=== PATIENT | female | born 1970 | race Caucasian/White ===

== ENCOUNTER 2017-12-24 09:53 | Inpatient (IN) ==
[2017-12-24] MEDS ORDERED: *HR* Midazolam HCl 2 MG/2 ML VIAL ONE (10:20)
[2017-12-24] MEDS ORDERED: *HR* FentaNYL (PF) 100 MCG/2 ML VIAL ONE ×2 (10:20→14:55)
[2017-12-24] MEDS ORDERED: Ondansetron 4 MG/2 ML VIAL ONE (10:20)
[2017-12-24] MEDS ORDERED: *HR* Propofol 200 MG/20 ML VIAL IVP ONE ×2 (10:20→15:11)
[2017-12-24] MEDS ORDERED: Lidocaine -MPF 2% 2 ML VIAL ONE ×2 (10:20→16:01)
[2017-12-24] MEDS ORDERED: Dexamethasone 4 MG/ML VIAL ONE ×2 (10:43→13:24)
--- NOTE | 2017-12-24 10:58 | History & Physical Report ---
Date of Encounter: 12/24/17 Time of Encounter: 10:30 24 Hour HP Update - Instructions Instructions: If the History and Physical is less than 30 days old and was completed prior to A.M. admission and or procedure and has NOT been updated on calendar day of procedure please complete this update prior to performing procedure. - Update Patient reports changes in Medical Condition: No Changes in examination, assessment, or condition: No Changes in Medication: No Preop tests/diagnostics Reviewed: Yes Surgery Remains Indicated: Yes Consent for Planned Operative Procedure(s) Verified: Yes - Attending Attestation proceed
--- NOTE | 2017-12-24 10:59 | Anesthesia Evaluation PreOp ---
Date of Encounter: 12/24/17 Time of Encounter: 10:56 - Past History Planned Operation: RIGHT ANKLE FUSION Cardiac History: HTN, Hyperlipidemia, Cardiac Surgery (? 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 3, RIGHT SIDE HEMIPARESIS), Other (DEPRESSION,) Other Medical History: GERD, Other (MORBID OBESITY, BMI 49) Anesthesia History: No Prior Anesthetic Complications, Past Anesthesia Alcohol Use: none Drug use: none Medications and Allergies Aclidinium [place] [Tudorza Pressair] 400 mcg PO BID 12/24/17 [History] Aspirin Enteric Coated [Aspirin EC] 81 mg PO DAILY 12/24/17 [History] Budesonide/Formoterol 80/4.5 [Symbicort 80/4.5] 2 puff IH BID 12/24/17 [History ] Chlorthalidone 25 mg PO DAILY 12/24/17 [History] Cyclobenzaprine HCl 10 mg PO TID PRN 12/24/17 [History] Ergocalciferol (VITAMIN D2) [Vitamin D2] 50,000 unit PO DAVIDSON 12/24/17 [History] Fenofibrate [Fenofibrate] 50 mg PO BID 12/24/17 [History] Gabapentin [Neurontin] 300 mg PO BID 12/24/17 [History] Lisinopril [Zestril] 40 mg PO DAILY 12/24/17 [History] Loratadine [Claritin] 10 mg PO DAILY 12/24/17 [History] Metoclopramide [Reglan] 10 mg PO BID PRN 12/24/17 [History] Metoprolol Succinate [Metoprolol Succinate] 50 mg PO DAILY 12/24/17 [History] Oxybutynin Chloride [Ditropan Xl] 15 mg PO DAILY 12/24/17 [History] Pantoprazole Sodium [Protonix] 40 mg PO QAM 12/24/17 [History] Pravastatin Sodium [Pravachol] 20 mg PO QAM 12/24/17 [History] Ranitidine HCl [Zantac] 300 mg PO HS 12/24/17 [History] 3 Allergy/AdvReac Type Severity Reaction Status Date / Time aspirin AdvReac Hives Verified 12/24/17 10:42 atorvastatin [From Lipitor] AdvReac Muscle Pain Verified 12/24/17 10:42 ibuprofen [From Motrin] AdvReac Itching Verified 12/24/17 10:42 - Meds/Allergy Pre-op Review Medications Reviewed: Yes Allergies Reviewed: Yes Beta Blockers on Current Med List: Yes Anesthesia Exam Vital Signs Temp Pulse Resp BP Pulse Ox 97.6 F 95 18 138/80 97 12/24/17 10:42 12/24/17 10:42 12/24/17 10:42 12/24/17 10:42 12/24/17 10:42 Height 1.63 m Weight 130.635 kg BMI 49 - HEENT Pupil (Motor): Pupils equal Mallampati: II Teeth: Missing, Edentulous Oral Opening: Greater than 3 - AIRSET MOLDER AIRSET MOLDER Motor: Deficit RUE, Deficit RLE - Cardiac Rhythm: Regular - Pulmonary Breath Sounds: bilateral Clear Respiratory Effort: Symmetrical Anesthesia Assess/Plan ASA Score: 4 Modified Siddhartha Scale for Level of Consciousness: Cooperative, oriented, and tranquil Anesthetic Plan: General, Regional (FOR POSTOPERATIVE PAIN) Monitoring Plan: Standard Monitors Recovery Plan: PACU Anes Supervising Prov Stmt: PATIENT'S CHART REVIEWED, INCLUDING RECORDS AND LAB WORK FROM [facility] REQUESTED CARDIOLOGY OFFICE NOTE ([facility]), NOT RECEIVED YET
[2017-12-24] MEDS ORDERED: Ondansetron 4 MG/2 ML VIAL IVP PRN (11:02)
[2017-12-24] MEDS ORDERED: *HR* OxyCODONE Immed Rel 5 MG TABLET PO PRN ×3 (11:12→17:16)
[2017-12-24] MEDS ORDERED: *HR* HYDROcodone/Acet 5/325 mg TABLET PO PRN (11:14)
[2017-12-24] MEDS ORDERED: Bupivacaine/EPI 1:200k 0.25%PF 30 ML VIAL ONE (11:16)
[2017-12-24] MEDS: Ringers Solution, Lactated 1,000 ML IVC SCH ×2 (11:30→12:56)
[2017-12-24] MEDS ORDERED: Lidocaine -MPF 4% 5 ML AMPUL ONE (11:38)
[2017-12-24] MEDS ORDERED: *HR* Succinylcholine 200 MG/10 ML VIAL IVP ONE (11:38)
[2017-12-24] MEDS ORDERED: ROPIVACAINE HCL/PF 0.5% 30 ML VIAL ONE ×2 (11:41→12:11)
[2017-12-24] MEDS ORDERED: EPHEDrine 50 MG/ML VIAL ONE (12:42)
[2017-12-24] MEDS ORDERED: *HR* Labetalol 20 MG/4 ML SYRINGE IVP PRN ×2 (13:01→17:16)
[2017-12-24] MEDS ORDERED: *HR* Morphine 2 MG/ML SYRINGE IVP PRN ×2 (13:01→17:16)
[2017-12-24] MEDS ORDERED: *HR* Promethazine 25 MG/ML VIAL IVP PRN ×2 (13:01→17:16)
--- NOTE | 2017-12-24 13:01 | Anesthesia Procedures ---
Date of Encounter: 12/24/17 Time of Encounter: 12:15 Procedures: Anesthesia - Nerve Block Procedure Date: 12/24/17 Time: 12:15 Surgical Procedure: right ankle fusion Checklist: Correct Patient Identifier, Correct procedure, History checked Correct side: Right Blood Thinner: No Monitor Applied: EKG, BP, Pulse Oximetry Supplemental Oxygen via Nasal Cannula (L/min): 2 Sedation: Versed (mg): 2 Sedation: Fentanyl (mcg): 100 Indication: Post Op Analgesia Block Type: Popliteal, Other (adductor canal) Catheter placed: No Sterile Technique: Yes Ultrasound used: Yes Anatomy identified: Yes Visual spread of Local: Yes Neuro Stimulation: Yes Nerve Stimulator Range: 0.2 - 0.4 mA Blood on Needle Aspiration: No Smooth Injection of Local: Yes Pain with Injection of Local: No Prep: Chlorhexadine Needle: 21 x 100 mm Stimuplex (x2) Local: Ropivacaine (0.5 % with 8mg of decadron) Volume (cc): 60 total 0.5% ropi. Number of Attempts: 1 Complications: None/effective block Vitals: Vital Signs/O2 Sat, Most Current Temp Pulse Resp BP Pulse Ox 97.6 F 95 18 138/80 97 12/24/17 10:42 12/24/17 10:42 12/24/17 10:42 12/24/17 10:42 12/24/17 10:42
[2017-12-24] MEDS ORDERED: Acetaminophen IV 1,000 MG/100 ML INFUS..BTL ONE (13:45)
[2017-12-24] MEDS ORDERED: Neostigmine Methylsulfate 3 MG/3 ML SYRINGE ONE (13:52)
--- NOTE | 2017-12-24 16:28 | Operative Note ---
Date of procedure: 12/24/17 Pre-op diagnosis: Right drop foot, acquired deformity right foot Post-op diagnosis: same Procedure: Right ankle Arthrodesis Subtalar joint Arthrodesis Implants: Biomet Grottoes intramedullary nail 10mm Complications: none Anesthesia: GETA Local Anesthetics: 0.25% Sensorcaine HCL with Epinephrine 1:200,000 SubQ (cc) Surgeon: Bartolo Brown Was there an seismic survey assistant present: No Estimated blood loss (cc): 250 Specimen: none Condition: stable Disposition: PACU Procedure in Detail: Indications: 47 year old female right drop foot and pain which failed conservative treatment in a brace as she had persistent difficulty walking and pain. Patient had already had a posterior tibial tendon transfer. Patients drop foot limited ambulation. Preoperatively nature of the above procedure ankle and subtalar joint arthrodesis were discussed at length pre-operatively. Risks versus benefits potential complications and consequences of surgery including but not limited to infection bleeding swelling numbness tingling nerve damage loss of functionality lack of procedure to produce desired outcome stiffness blood clot heart attack kidney damage liver damage persistent ongoing pain. Recurrence of deformity or drop foot development of new deformity delayed or nonunion of bone wound healing problems in ability to later have an ankle replacement, need for hardware removal need for further surgery, etc. no guarantees made as to the outcome of any procedure. All of her questions were answered and informed consent was signed. Patient was given a popliteal block by anesthesia and preoperative. Following induction of general anesthesia, the right lower extremity was scrubbed prepped and draped in the usual sterile fashion. A thigh tourniquet was applied but not inflated during the entire procedure. Right ankle arthrodesis and subtalar joint arthrodesis. Attention was directed to the lateral aspect of the patient's right ankle are #15 blade was used to make an incision over the fibula and the skin incision was deepened down to the level of the fibula bone. A sagittal saw was utilized to resect the distal 5 cm of the fibula. With the fibula removed, soft tissue was freed from the lateral and anterior aspect of the tibia and talus exposing the ankle joint. The anterior lip of the tibia was resected using the ronjeur. The incision on the lateral aspect of the ankle was lengthened to #15 blade exposing the subtalar joint. The subtalar joint ligaments were released and access was gained the subtalar joint. Next, using a combination of the curettes, osteotomes , flexible chisel and rotary bur as well as ronjeur the cartilage was removed from the tibiotalar and subtalar joint surfaces until there was bleeding subchondral bone and normal sterile saline was used to flush the joint surfaces and surgical site. A drill bit was used to fenestrate the joint surfaces. With the joint surfaces adequately prepped, the talus was medialized and both the tibiotalar joint and subtalar joint were held in a neutral position and temporarily pinned. Next using standard technique a Biomet Grottoes intramedullary nail 10 mm x 180 mm was utilized across the tibiotalar and subtalar joints for arthrodesis. External and internal compression was utilized. Excellent compression and apposition was noted on C-arm as well as clinically across the fusion zones. The tourniquet was not inflated and adequate hemostasis was present at the time of closure. Traversing veins and bleeders were cauterized using the bovie and vicryl ties during the procedure. Adequate hemostasis was felt to be present and the deep and subcutaneous tissues were closed with 2-0 Vicryl and skin reapproximated using a combination of melanie and 2-0 Nylon. Postoperative bandaging included Xeroform, 4 x 4 gauze Kerlix and the patient was placed in an adequately padded posterior splint. Patient tolerated the anesthesia and the procedure well and was escorted the recovery room with vital signs stable and vascular status intact to the right foot noted by instant capillary refill time to all digits of the right foot. Patient was admitted to the floor for monitoring tonight and will be discharged tomorrow.
--- NOTE | 2017-12-24 16:44 | Discharge Summary ---
Outpatient Proc Discharge Plan - Plan Additional Instructions: Remain non-weight bearing to the right lower extremity using assistive devices.. Ice and elevation. We have posterior splint and bandage clean dry and intact. Do not remove. Do not get wet. Resume home medications. New prescriptions discussed with you and given for oxycodone for pain, Zofran for nausea and Xarelto for blood clot prevention. incentive spirometry 10x/hour while awake. Follow up in 1 week.. Prescriptions: Miscellaneous Medical Supply [Attachment Set] 1 each MC DAILY 9999 Days #1 miscell Ondansetron ODT [Zofran ODT] 4 mg SL Q8HR PRN #15 tab.rapdis PRN Reason: Nausea Oxycodone HCl 5 mg PO Q4H PRN 6 Days #36 tablet PRN Reason: Pain Rivaroxaban [Xarelto] 10 mg PO DAILY #20 tablet Home Medications: Aclidinium [place] [Tudorza Pressair] 400 mcg PO BID 12/24/17 [History] Aspirin Enteric Coated [Aspirin EC] 81 mg PO DAILY 12/24/17 [History] Budesonide/Formoterol 80/4.5 [Symbicort 80/4.5] 2 puff IH BID 12/24/17 [History ] Chlorthalidone 25 mg PO DAILY 12/24/17 [History] Cyclobenzaprine HCl 10 mg PO TID PRN 12/24/17 [History] Ergocalciferol (VITAMIN D2) [Vitamin D2] 50,000 unit PO DAVIDSON 12/24/17 [History] Fenofibrate [Fenofibrate] 50 mg PO BID 12/24/17 [History] Gabapentin [Neurontin] 300 mg PO BID 12/24/17 [History] Lisinopril [Zestril] 40 mg PO DAILY 12/24/17 [History] Loratadine [Claritin] 10 mg PO DAILY 12/24/17 [History] Metoclopramide [Reglan] 10 mg PO BID PRN 12/24/17 [History] Metoprolol Succinate [Metoprolol Succinate] 50 mg PO DAILY 12/24/17 [History] Miscellaneous Medical Supply [Attachment Set] 1 each MC DAILY 9999 Days #1 miscell 12/24/17 [Rx] Ondansetron ODT [Zofran ODT] 4 mg SL Q8HR PRN #15 tab.rapdis 12/24/17 [Rx] Oxybutynin Chloride [Ditropan Xl] 15 mg PO DAILY 12/24/17 [History] Oxycodone HCl 5 mg PO Q4H PRN 6 Days #36 tablet 12/24/17 [Rx] Pantoprazole Sodium [Protonix] 40 mg PO QAM 12/24/17 [History] Pravastatin Sodium [Pravachol] 20 mg PO QAM 12/24/17 [History] Ranitidine HCl [Zantac] 300 mg PO HS 12/24/17 [History] Rivaroxaban [Xarelto] 10 mg PO DAILY #20 tablet 12/24/17 [Rx]
--- NOTE | 2017-12-24 17:02 | Anesthesia Evaluation Post Op ---
Date of Encounter: 12/24/17 Time of Encounter: 16:53 - Discharge PostOp Status: Transfer Patient to floor (Patient's vital signs have been reviewed. Patient is stable postoperatively and has adequately recovered from anesthesia. Patient is determined to have stable airway patency and respiratory function including respiratory rate and oxygen saturation. Patient has a stable heart rate, blood pressure and adequate hydration. Patients mental status is acceptable. Patients temperature is appropriate. Pain and nausea are adequately controlled.)
[2017-12-24] MEDS ORDERED: Ringers Solution, Lactated 1,000 ML IVC SCH (17:16)
[2017-12-24] MEDS: *HR* OxyCODONE Immed Rel 5 MG TABLET PO PRN (19:17)
[2017-12-24] MEDS: Budesonide/Formoterol 80/4.5 MDI IH SCH (20:26)
[2017-12-24] MEDS ORDERED: Gabapentin 300 MG CAPSULE PO SCH (21:00)
[2017-12-24] MEDS ORDERED: Famotidine 20 MG TABLET PO SCH (21:00)
[2017-12-24] MEDS ORDERED: Budesonide/Formoterol 80/4.5 MDI IH SCH (22:00)
[2017-12-24] MEDS: Gabapentin 300 MG CAPSULE PO SCH (22:59)
[2017-12-24] MEDS: *HR* HYDROcodone/Acet 5/325 mg TABLET PO PRN (22:59)
[2017-12-24] MEDS: Famotidine 20 MG TABLET PO SCH (23:00)
[2017-12-25] MEDS: *HR* OxyCODONE Immed Rel 5 MG TABLET PO PRN ×4 (03:16→20:31)
[2017-12-25] MEDS: Ondansetron 4 MG/2 ML VIAL IVP PRN ×2 (03:23→14:23)
[2017-12-25] MEDS: Budesonide/Formoterol 80/4.5 MDI IH SCH ×2 (07:48→20:21)
--- NOTE | 2017-12-25 07:48 | Podiatry Progress Note ---
Date of Encounter: 12/25/17 Time of Encounter: 07:15 Subjective Interval history: s/p tibiotalocalcaneal arthrodesis right LE. has voided. pain controlled. resting in bed. some nausea overnight CFT < 3 sec x 5 digits right foot. right foot warm to touch. bandage clean, dry and intact. no strikethrough. can flex and extend digits of the right foot. s/p tibiotalocalcaneal arthrodesis right LE-doing well discussed surgical procedure and course of recovery remain non-wb to the right LE using assistive devices physical therapy Rx in chart for xarelto, oxycodone, wheelchair, zofran social problems specialist to eval to set up home health, [facility] home PT for assistance in gait training/non-wb patient stable for discharge f/u in 1 week in office Objective - Vital Signs Vital Signs: Vital Signs Temp Pulse Resp BP Pulse Ox 12/25/17 07:20 98.2 F 89 16 107/62 96 12/25/17 04:08 97.9 F 88 16 107/69 95 12/24/17 23:55 97.9 F 103 18 129/58 96 12/24/17 20:26 16 97 12/24/17 20:20 98.2 F 80 16 118/72 96 12/24/17 19:19 97.2 F L 97 97 132/72 95 12/24/17 18:20 97.4 F L 92 14 118/73 96 12/24/17 17:49 97.7 F 88 14 110/64 94 12/24/17 17:19 97.9 F 87 14 105/69 94 12/24/17 17:04 88 18 124/76 93 12/24/17 16:54 90 18 128/70 94 12/24/17 16:44 91 18 120/90 93 12/24/17 16:34 98.4 F 88 16 124/64 97 12/24/17 10:42 97.6 F 95 18 138/80 97 12/24/17 10:24 97.6 F 95 18 138/80 97 Intake and Output 12/24/17 12/24/17 12/25/17 15:59 23:59 07:59 Intake Total 1000 / 1000 100 / 100 Output Total 250 / 250 1000 / 1000 Balance 1000 / 1000 -150 / -150 -1000 / -1000 Intake: IV Fluids 1000 / 1000 100 / 100 Lactated Ringers 1,000 ML @ 25 1000 / 1000 mls/hr IVC .Q24H OCTAVIO Rx#: [id number] Ancef 2,000 MG In 0.9 % Sodium 100 / 100 Chloride 100 ML @ 200 mls/hr IVPB Q8H OCTAVIO Rx#:[id number] Output: Urine 1000 / 1000 Estimated Blood Loss 250 / 250 Other: # Voids 1 1 Weight 130.635 kg - VTE Documentation of Mechanical Device: Venous foot pump, device Consult Discharge Plan - Plan Additional Instructions: Remain non-weight bearing to the right lower extremity using assistive devices.. Ice and elevation. We have posterior splint and bandage clean dry and intact. Do not remove. Do not get wet. Resume home medications. New prescriptions discussed with you and given for oxycodone for pain, Zofran for nausea and Xarelto for blood clot prevention. incentive spirometry 10x/hour while awake. Follow up in 1 week.. Referrals: Kobe Santos MD [Family Provider] - Johnnie Hassan [Primary Care Provider] - Prescriptions: Miscellaneous Medical Supply [Attachment Set] 1 each MC DAILY 9999 Days #1 miscell Ondansetron ODT [Zofran ODT] 4 mg SL Q8HR PRN #15 tab.rapdis PRN Reason: Nausea Oxycodone HCl 5 mg PO Q4H PRN 6 Days #36 tablet PRN Reason: Pain Rivaroxaban [Xarelto] 10 mg PO DAILY #20 tablet
--- NOTE | 2017-12-25 07:52 | Physician Discharge Referral ---
Home Health/Hosp Referral Info Transfer to: Home Health Attending Provider: Bartolo Brown - Diagnosis (1) Right foot drop Priority: Primary (s/p surgery) Status: Acute - Respiratory Orders Smoking Cessation: Smoking cessation has been advised. For more information, call the [place] Tobacco Quit Line at 5-347-WLOF-NOW. - Dressing/Wound Care Site: leave bandage clean, dry and intact. Do not remove. Do not get wet. - Diet/Nutrition Diet/Nutrition Orders: Cardiac - Activity Activity: List: non-weight bearing right lower extremity using walker or other assistive device - Services Needed Following services are medically necessary services: Home Health Aide, Physical Therapy Home Care Orders: physical therapy for gait training for non-weight bearing and safely navigating home no physical therapy on foot or ankle home health aide to assist in ADLs - Transfer Medications Prescriptions: Miscellaneous Medical Supply [Attachment Set] 1 each MC DAILY 9999 Days #1 miscell Ondansetron ODT [Zofran ODT] 4 mg SL Q8HR PRN #15 tab.rapdis PRN Reason: Nausea Oxycodone HCl 5 mg PO Q4H PRN 6 Days #36 tablet PRN Reason: Pain Rivaroxaban [Xarelto] 10 mg PO DAILY #20 tablet Home Medications: Aclidinium [place] [Tudorza Pressair] 400 mcg PO BID 12/24/17 [History] Aspirin Enteric Coated [Aspirin EC] 81 mg PO DAILY 12/24/17 [History] Budesonide/Formoterol 80/4.5 [Symbicort 80/4.5] 2 puff IH BID 12/24/17 [History ] Chlorthalidone 25 mg PO DAILY 12/24/17 [History] Cyclobenzaprine HCl 10 mg PO TID PRN 12/24/17 [History] Ergocalciferol (VITAMIN D2) [Vitamin D2] 50,000 unit PO DAVIDSON 12/24/17 [History] Fenofibrate [Fenofibrate] 50 mg PO BID 12/24/17 [History] Gabapentin [Neurontin] 300 mg PO BID 12/24/17 [History] Lisinopril [Zestril] 40 mg PO DAILY 12/24/17 [History] Loratadine [Claritin] 10 mg PO DAILY 12/24/17 [History] Metoclopramide [Reglan] 10 mg PO BID PRN 12/24/17 [History] Metoprolol Succinate [Metoprolol Succinate] 50 mg PO DAILY 12/24/17 [History] Miscellaneous Medical Supply [Attachment Set] 1 each MC DAILY 9999 Days #1 miscell 12/24/17 [Rx] Ondansetron ODT [Zofran ODT] 4 mg SL Q8HR PRN #15 tab.rapdis 12/24/17 [Rx] Oxybutynin Chloride [Ditropan Xl] 15 mg PO DAILY 12/24/17 [History] Oxycodone HCl 5 mg PO Q4H PRN 6 Days #36 tablet 12/24/17 [Rx] Pantoprazole Sodium [Protonix] 40 mg PO QAM 12/24/17 [History] Pravastatin Sodium [Pravachol] 20 mg PO QAM 12/24/17 [History] Ranitidine HCl [Zantac] 300 mg PO HS 12/24/17 [History] Rivaroxaban [Xarelto] 10 mg PO DAILY #20 tablet 12/24/17 [Rx] Allergies/Adverse Reactions: 3 Allergy/AdvReac Type Severity Reaction Status Date / Time aspirin AdvReac Hives Verified 12/24/17 10:42 atorvastatin [From Lipitor] AdvReac Muscle Pain Verified 12/24/17 10:42 ibuprofen [From Motrin] AdvReac Itching Verified 12/24/17 10:42 Certification: Further, I certify that my clinical findings support that this patient is homebound (i.e. absences from home require considerable and taxing effort and are for medical reasons or [employer]isc[employer] services or infrequently or short duration when for other reasons) because: Homebound Reason: Post-surgery restriction and or conditions limit ability to leave home, Leaving home requires considerable and taxing effort due to condition (s/p surgery non-weight bearing right ower extremity) Attestation: My signature below is to certify that this patient is under my care and that I, or nurse practitioner, or a physician's nursing assistants teacher working with me, has a face-to -face encounter with this patient.
[2017-12-25] MEDS: Loratadine 10 MG TABLET PO SCH (08:36)
[2017-12-25] MEDS: Cholecalciferol (D-3) 1,000 UNIT TABLET PO SCH (08:36)
[2017-12-25] MEDS: Gabapentin 300 MG CAPSULE PO SCH ×2 (08:37→20:32)
[2017-12-25] MEDS: Lisinopril 20 MG TABLET PO SCH (08:40)
[2017-12-25] MEDS: (Aclidinium Bromide [Tudorza Pressair] 400 MCG) PO SCH ×2 (08:50→20:21)
[2017-12-25] MEDS ORDERED: Aspirin 81 MG TAB.CHEW PO SCH ×2 (09:00)
[2017-12-25] MEDS ORDERED: Loratadine 10 MG TABLET PO SCH ×2 (09:00)
[2017-12-25] MEDS ORDERED: NON-FORMULARY MEDICATION 1 EACH EACH (Pravastatin Sodium [Pravachol] 20 MG) PO SCH (09:00)
[2017-12-25] MEDS ORDERED: OXYBUTYNIN CHLORIDE 15 MG PO SCH (09:00)
[2017-12-25] MEDS ORDERED: Gabapentin 300 MG CAPSULE PO SCH (09:00)
[2017-12-25] MEDS ORDERED: Cholecalciferol (D-3) 1,000 UNIT TABLET PO SCH (09:00)
[2017-12-25] MEDS ORDERED: NON-FORMULARY MEDICATION 1 EACH EACH (Lisinopril [Zestril] 40 MG) PO SCH (09:00)
[2017-12-25] MEDS ORDERED: FENOFIBRATE 50 MG PO SCH (09:00)
[2017-12-25] MEDS ORDERED: NON-FORMULARY MEDICATION 1 EACH EACH (Pantoprazole Sodium [Protonix] 40 MG) PO SCH (09:00)
[2017-12-25] MEDS ORDERED: Fenofibrate 54 MG TABLET PO SCH ×2 (09:00)
[2017-12-25] MEDS ORDERED: Lisinopril 20 MG TABLET PO SCH (09:00)
[2017-12-25] MEDS: Aspirin Enteric Coated 81 MG Tablet PO SCH (09:34)
[2017-12-25] MEDS ORDERED: Budesonide/Formoterol 80/4.5 MDI IH SCH (10:00)
[2017-12-25] MEDS ORDERED: *HR* Enoxaparin 40 MG/0.4 ML SYRINGE SQ SCH (18:00)
--- NOTE | 2017-12-25 20:01 | Discharge Summary ---
Date of Encounter: 12/25/17 Time of Encounter: 07:00 - NOTES TO OUTPATIENT PROVIDER Notes to Outpatient Provider: [facility]. One week following discharge - Discharge Diagnosis (1) Right foot drop Priority: Primary Status: Acute Labs on day of discharge: Labs from last 24 hours 12/24/17 10:41 POC Urine HCG, Qual Negative - Impressions ITS Impressions Fluoroscopy 12/24/17 00:00 IMPRESSION: Intraprocedural fluoroscopic spot images as above. See separate procedure report for more information. D/ / Mehul Henley MD / Mehul Henley MD Interpreting Provider: Mehul Henley MD - Hospital Course Hospital course: Ms. Houston is a 47 year old female - Time Spent with Patient Total time spent providing and/or coordinating discharge services: Greater than 30 minutes Specific discharge activities: non-weight bearing right lower extremity - Discharge Medications Prescriptions: Miscellaneous Medical Supply [Attachment Set] 1 each MC DAILY 9999 Days #1 miscell Ondansetron ODT [Zofran ODT] 4 mg SL Q8HR PRN #15 tab.rapdis PRN Reason: Nausea Oxycodone HCl 5 mg PO Q4H PRN 6 Days #36 tablet PRN Reason: Pain Rivaroxaban [Xarelto] 10 mg PO DAILY #20 tablet Home Medications: Aclidinium [place] [Tudorza Pressair] 400 mcg PO BID 12/24/17 [History] Aspirin Enteric Coated [Aspirin EC] 81 mg PO DAILY 12/24/17 [History] Budesonide/Formoterol 80/4.5 [Symbicort 80/4.5] 2 puff IH BID 12/24/17 [History ] Chlorthalidone 25 mg PO DAILY 12/24/17 [History] Cyclobenzaprine HCl 10 mg PO TID PRN 12/24/17 [History] Ergocalciferol (VITAMIN D2) [Vitamin D2] 50,000 unit PO DAVIDSON 12/24/17 [History] Fenofibrate [Fenofibrate] 50 mg PO BID 12/24/17 [History] Gabapentin [Neurontin] 300 mg PO BID 12/24/17 [History] Lisinopril [Zestril] 40 mg PO DAILY 12/24/17 [History] Loratadine [Claritin] 10 mg PO DAILY 12/24/17 [History] Metoclopramide [Reglan] 10 mg PO BID PRN 12/24/17 [History] Metoprolol Succinate [Metoprolol Succinate] 50 mg PO DAILY 12/24/17 [History] Miscellaneous Medical Supply [Attachment Set] 1 each MC DAILY 9999 Days #1 miscell 12/24/17 [Rx] Ondansetron ODT [Zofran ODT] 4 mg SL Q8HR PRN #15 tab.rapdis 12/24/17 [Rx] Oxybutynin Chloride [Ditropan Xl] 15 mg PO DAILY 12/24/17 [History] Oxycodone HCl 5 mg PO Q4H PRN 6 Days #36 tablet 12/24/17 [Rx] Pantoprazole Sodium [Protonix] 40 mg PO QAM 12/24/17 [History] Pravastatin Sodium [Pravachol] 20 mg PO QAM 12/24/17 [History] Ranitidine HCl [Zantac] 300 mg PO HS 12/24/17 [History] Rivaroxaban [Xarelto] 10 mg PO DAILY #20 tablet 12/24/17 [Rx] Allergies/Adverse Reactions: 3 Allergy/AdvReac Type Severity Reaction Status Date / Time aspirin AdvReac Hives Verified 12/24/17 10:42 atorvastatin [From Lipitor] AdvReac Muscle Pain Verified 12/24/17 10:42 ibuprofen [From Motrin] AdvReac Itching Verified 12/24/17 10:42 Primary care physician: Johnnie Hassan Consults: 12/24/17 11:16 Consult to Physical Therapy [CONS] Routine Comment: Evaluate, develop and implement POC Reason for Consult: s/p surgery, gait training non-weight bearing right foot. Does patient have active BEDREST order?: No Is patient medically & hemodynamically stable?: Yes 12/24/17 16:33 Consult to [employer] [CONS] Routine Reason for SW Consult: set up home care 12/25/17 10:58 Consult to Occupational Therapy [CONS] Routine Comment: Evaluate, develop and implement POC Reason for Consult: Possible rehab Does patient have active BEDREST order?: No Is patient medically & hemodynamically stable?: Yes Patient assessed for mobility or mobilized this visit?: No Discharging clinician: Bartolo Brown Anticipated date of discharge: 12/26/17 - Patient Status Disposition: Transfer Inpatient Rehab Fac Overall status at discharge: patient is progressing back to baseline - Discharge Instructions Follow Up With: Kobe Santos MD [Family Provider] - Bartolo Brown, DPM [Partnered Physician] - 01/02/18 4:05 pm Johnnie Hassan [Primary Care Provider] - Additional Instructions: Remain non-weight bearing to the right lower extremity using assistive devices.. Ice and elevation. We have posterior splint and bandage clean dry and intact. Do not remove. Do not get wet. Resume home medications. New prescriptions discussed with you and given for oxycodone for pain, Zofran for nausea and Xarelto for blood clot prevention. incentive spirometry 10x/hour while awake. Follow up in 1 week.. - Diet and Activity Activity: as per physical therapy (no weight on right lower extremity) Diet: low fat, low cholesterol - VTE Documentation of Mechanical Device: Venous foot pump, device Contraindication No Overlap Therapy: Admin of oral Factor Xa Inhibitor (xarelto 10mg daily)
--- NOTE | 2017-12-25 20:21 | Physician Discharge Referral ---
ExtendedCare Referral Info Transfer To: inpatient acute rehab facility Provider in Charge: Bartolo Brown Institutional Level of Care: Skilled - Diagnosis (1) Right foot drop Priority: Primary Status: Acute Prognosis: Good Aware of Diagnosis: Patient, Family Aware of Prognosis: Patient, Family - Transfer Medications Prescriptions: Miscellaneous Medical Supply [Attachment Set] 1 each MC DAILY 9999 Days #1 miscell Ondansetron ODT [Zofran ODT] 4 mg SL Q8HR PRN #15 tab.rapdis PRN Reason: Nausea Oxycodone HCl 5 mg PO Q4H PRN 6 Days #36 tablet PRN Reason: Pain Rivaroxaban [Xarelto] 10 mg PO DAILY #20 tablet Home Medications: Aclidinium [place] [Tudorza Pressair] 400 mcg PO BID 12/24/17 [History] Aspirin Enteric Coated [Aspirin EC] 81 mg PO DAILY 12/24/17 [History] Budesonide/Formoterol 80/4.5 [Symbicort 80/4.5] 2 puff IH BID 12/24/17 [History ] Chlorthalidone 25 mg PO DAILY 12/24/17 [History] Cyclobenzaprine HCl 10 mg PO TID PRN 12/24/17 [History] Ergocalciferol (VITAMIN D2) [Vitamin D2] 50,000 unit PO DAVIDSON 12/24/17 [History] Fenofibrate [Fenofibrate] 50 mg PO BID 12/24/17 [History] Gabapentin [Neurontin] 300 mg PO BID 12/24/17 [History] Lisinopril [Zestril] 40 mg PO DAILY 12/24/17 [History] Loratadine [Claritin] 10 mg PO DAILY 12/24/17 [History] Metoclopramide [Reglan] 10 mg PO BID PRN 12/24/17 [History] Metoprolol Succinate [Metoprolol Succinate] 50 mg PO DAILY 12/24/17 [History] Miscellaneous Medical Supply [Attachment Set] 1 each MC DAILY 9999 Days #1 miscell 12/24/17 [Rx] Ondansetron ODT [Zofran ODT] 4 mg SL Q8HR PRN #15 tab.rapdis 12/24/17 [Rx] Oxybutynin Chloride [Ditropan Xl] 15 mg PO DAILY 09/05/18 [History] Oxycodone HCl 5 mg PO Q4H PRN 6 Days #36 tablet 12/24/17 [Rx] Pantoprazole Sodium [Protonix] 40 mg PO QAM 12/24/17 [History] Pravastatin Sodium [Pravachol] 20 mg PO QAM 12/24/17 [History] Ranitidine HCl [Zantac] 300 mg PO HS 12/24/17 [History] Rivaroxaban [Xarelto] 10 mg PO DAILY #20 tablet 12/24/17 [Rx] Allergies/Adverse Reactions: 3 Allergy/AdvReac Type Severity Reaction Status Date / Time aspirin AdvReac Hives Verified 12/24/17 10:42 atorvastatin [From Lipitor] AdvReac Muscle Pain Verified 12/24/17 10:42 ibuprofen [From Motrin] AdvReac Itching Verified 12/24/17 10:42 - Respiratory Orders Smoking Cessation: Smoking cessation has been advised. For more information, call the [place] [facility] Quit Line at 2-889-LYHA-NOW. - Mobility Orders Other (non-weight bearin right lower extremity) - Rehabiliation Orders Rehab Potential: Good Other: nonweight bearing right lower extremity using assistive devices - Treatments List/Other: leave bandage clean, dry and intact. Do not remove. Do not get wet. - Diet Orders No Added Salt (MICHAEL), Cardiac CERTIFICATION: I certify that the transfer of the above named patient to an Extended Care Facility is necessary for the continuing treatment of the diagnosis listed. The above information is true and accurate reflection of patient's current condition. Confidential - Redisclosure prohibited without a patient's written consent.
[2017-12-25] MEDS: *HR* Enoxaparin 40 MG/0.4 ML SYRINGE SQ SCH (20:30)
[2017-12-25] MEDS: Famotidine 20 MG TABLET PO SCH (20:31)
[2017-12-25] MEDS ORDERED: NON-FORMULARY MEDICATION 1 EACH EACH (Ranitidine Hcl [Zantac] 300 MG) PO SCH (21:00)
[2017-12-26] MEDS: Ondansetron 4 MG/2 ML VIAL IVP PRN ×2 (03:15→11:31)
[2017-12-26] MEDS: *HR* HYDROcodone/Acet 5/325 mg TABLET PO PRN ×2 (03:16→08:20)
[2017-12-26] MEDS: *HR* Enoxaparin 40 MG/0.4 ML SYRINGE SQ SCH (06:23)
[2017-12-26] MEDS: *HR* OxyCODONE Immed Rel 5 MG TABLET PO PRN ×2 (06:23→12:26)
[2017-12-26] MEDS: Budesonide/Formoterol 80/4.5 MDI IH SCH (07:49)
[2017-12-26] MEDS: (Aclidinium Bromide [Tudorza Pressair] 400 MCG) PO SCH (07:55)
[2017-12-26] MEDS: Gabapentin 300 MG CAPSULE PO SCH (08:19)
[2017-12-26] MEDS: Loratadine 10 MG TABLET PO SCH (08:20)
[2017-12-26] MEDS: Lisinopril 20 MG TABLET PO SCH (08:20)
[2017-12-26] MEDS: Aspirin Enteric Coated 81 MG Tablet PO SCH (08:21)
[2017-12-26] MEDS: Cholecalciferol (D-3) 1,000 UNIT TABLET PO SCH (08:21)
[2017-12-26] MEDS ORDERED: Metoprolol XL (24 HR) Succ 50 MG TAB.ER.24H PO SCH (09:00)
[2017-12-26] MEDS ORDERED: Fenofibrate 54 MG TABLET PO SCH (09:00)
[2017-12-26 11:29] VITALS: BP 96/64
--- NOTE | 2017-12-26 18:19 | Podiatry Progress Note ---
Date of Encounter: 12/26/17 Time of Encounter: 06:15 - Assessment and Plan (1) Right foot drop Status: Acute Subjective Interval history: s/p tibiotalocalcaneal arthrodesis right LE. reports no problems overnight. says some pain today but pain controlled. resting in bed. some nausea overnight. CFT < 3 sec x 5 digits right foot. right foot warm to touch. bandage clean, dry and intact. no strikethrough. can flex and extend digits of the right foot. no calf pain with squeeze. s/p tibiotalocalcaneal arthrodesis right LE-doing well remain non-wb to the right LE using assistive devices. physical therapy and social work consults appreciated. Rx in chart for xarelto, oxycodone, wheelchair, zofran resume all home medications patient stable for discharge to SNF f/u in 1 week in office Objective - Vital Signs Vital Signs: Vital Signs Temp Pulse Resp BP Pulse Ox 12/26/17 11:26 98.1 F 64 18 96/64 95 12/26/17 07:50 18 96 12/26/17 07:00 97.8 F 68 18 100/66 97 12/26/17 00:19 98.6 F 70 16 108/70 96 12/25/17 21:15 98.0 F 72 16 103/68 95 12/25/17 20:23 14 96 Intake and Output 12/26/17 12/26/17 12/26/17 07:59 15:59 23:59 Intake Total 100 / 100 1180 / 1180 Output Total 350 / 350 600 / 600 Balance -250 / -250 580 / 580 Intake: IV Fluids 100 / 100 100 / 100 Ancef 2,000 MG In 0.9 % Sodium 100 / 100 100 / 100 Chloride 100 ML @ 200 mls/hr IVPB Q8H [facility] Rx#:[id number] Oral 1080 / 1080 Output: Urine 350 / 350 600 / 600 Other: Meal Lunch Percent of Meal Consumed 90% - VTE Documentation of Mechanical Device: Intermittent pneumatic compression device Contraindication No Overlap Therapy: Admin of oral Factor Xa Inhibitor (xarelto 10mg daily) Consult Discharge Plan - Plan Additional Instructions: Remain non-weight bearing to the right lower extremity using assistive devices.. Ice and elevation. We have posterior splint and bandage clean dry and intact. Do not remove. Do not get wet. Resume home medications. New prescriptions discussed with you and given for oxycodone for pain, Zofran for nausea and Xarelto for blood clot prevention. incentive spirometry 10x/hour while awake. Follow up in 1 week.. Referrals: Kobe Santos MD [Family Provider] - Bartolo Brown DPM [Partnered Physician] - 01/02/18 4:05 pm Johnnie Hassan [Primary Care Provider] -
== END 2017-12-26 14:51 | DRG 313 ==
LOC: SAMDAY 09:53 → 3NENU 17:16
PROVIDERS: ADMIT Podiatrist; ATTEND Podiatrist